=== PATIENT | male | born 1985 | race Hispanic/Latino ===

== ENCOUNTER 2018-03-07 10:16 | Emergency (ER) | payer BC ==
--- NOTE | 2018-03-07 10:18 | EDM.PDOC ---
ED HPI GENERAL MEDICAL PROBLEM - General Chief Complaint: Headache Stated Complaint: HEADACHE Time Seen by Provider: 03/07/18 10:17 Source of Information: Reports: Patient History Limitations: Reports: No Limitations - History of Present Illness INITIAL COMMENTS - FREE TEXT/NARRATIVE: HISTORY AND PHYSICAL: Headache History of present illness: Patient is a 32-year-old male who presents to the emergency room with complaints of left-sided headache. He is concerned that his blood pressure may be causing his symptoms. He states a little over a year ago he had similar problems and had found out he had elevated blood pressure. He had Head CT/MRI and labs, which were normal. He was placed on losartan 50 mg once daily. He had stopped taking this medication as he felt he had improved. He has not taken any antihypertensives in several months. Over the past 3 days he started having left -sided headache and BP of 175/93. His primary care provider in [place] encouraged him to restart his losartan. He states he has been taking a half tab in the morning and a half time in the evening. His headache has not alleviated and is here in the emergency room for evaluation. He denies any fever, chills, chest pain, shortness of breath or cough. Denies any change in vision, dizziness, syncope or near-syncope. He denies any abdominal pain, nausea, vomiting, diarrhea, constipation or dysuria. He has been eating and drinking appropriately. Review of systems: As per history of present illness and below otherwise all systems reviewed and negative. Past medical history: As per history of present illness and as reviewed below otherwise noncontributory. Surgical history: As per history of present illness and as reviewed below otherwise noncontributory. Social history: See social history for further information Family history: As per history of present illness and as reviewed below otherwise noncontributory. Physical exam: General: Well-developed and well-nourished 32-year-old male. Alert and oriented. Nontoxic appearing and in no acute distress. HEENT: Atraumatic, normocephalic, pupils equal and reactive bilaterally, negative for conjunctival pallor or scleral icterus, mucous membranes moist, TMs normal bilaterally, throat clear, neck supple, nontender, trachea midline. No drooling or trismus noted. No meningeal signs. No hot potato voice noted. Lungs: Clear to auscultation, breath sounds equal bilaterally, chest nontender. Heart: S1S2, regular rate and rhythm without overt murmur Abdomen: Soft, nondistended, nontender. Negative for masses or hepatosplenomegaly. Negative for costovertebral tenderness. Pelvis: Stable nontender. Genitourinary: Deferred. Rectal: Deferred. Skin: Intact, warm, dry. No lesions or rashes noted. Extremities: Atraumatic, negative for cords or calf pain. Neurovascular unremarkable. Neuro: Awake, alert, oriented. Cranial nerves II through XII unremarkable. Cerebellum unremarkable. Motor and sensory unremarkable throughout. Exam nonfocal. Notes: We discussed possible diagnostics which she defers at this time. He is agreeable to receiving IV fluids and medication only continue to monitor his blood pressure. Patient is very anxious and describes this headache like a tension headache. I will give him 1 mg of Ativan as he states that the Toradol did not help improve his symptoms. He does have a ride to home. Blood pressure is within normal limits. We'll discharge the patient home as he does feel improved. Encouraged him to take his medication as directed and follow -up with his primary care provider. He voices understanding and is agreeable to plan of care. Denies any further questions or concerns at this time. Diagnostics: Declines Therapeutics: IV fluid, Zofran, Toradol Prescription: None Impression: Headache Medication Non-compliance Plan: 1. Please take your blood pressure medication as directed. 2. Tylenol and/or ibuprofen for pain management. 3. Please follow-up with your primary caregiver in the next 1-2 days. Return to the ED as needed and as discussed. Definitive disposition and diagnosis as appropriate pending reevaluation and review of above. Duration: Day(s): Location: Reports: Head left side of head Pain Score (Numeric/FACES): 5 - Related Data Allergies Allergy/AdvReac Type Severity Reaction Status Date / Time No Known Allergies Allergy Verified 03/07/18 10:21 Home Meds: Home Meds Losartan [Cozaar] 50 mg PO DAILY 03/07/18 [History] ED ROS GENERAL - Review of Systems Review Of Systems: ROS reveals no pertinent complaints other than HPI. - Physical Exam Exam: See Below (See dictation) Course - Vital Signs Last Recorded V/S: Last Vital Signs Temp 98.6 F 03/07/18 10:22 Pulse 91 03/07/18 10:22 Resp 18 03/07/18 10:22 BP 151/72 H 03/07/18 10:22 Pulse Ox 100 03/07/18 10:22 - Orders/Labs/Meds Orders: Active Orders 24 hr Category Date Time Status Sodium Chloride 0.9% [Normal Saline] 1,000 ml Med 03/07/18 10:30 Active IV STAT Medication Orders Sodium Chloride (Normal Saline) 1,000 mls @ 999 mls/hr IV STAT ONE Stop: 03/07/18 11:30 Last Admin: 03/07/18 10:38 Dose: 999 mls/hr Meds: Medications Generic Name Dose Route Start Last Admin Trade Name Freq PRN Reason Stop Dose Admin Sodium Chloride 1,000 mls @ 999 mls/hr 03/07/18 10:30 03/07/18 10:38 Normal Saline IV 03/07/18 11:30 999 mls/hr STAT ONE Administration Discontinued Medications Generic Name Dose Route Start Last Admin Trade Name Freq PRN Reason Stop Dose Admin Ketorolac Tromethamine 30 mg 03/07/18 10:30 03/07/18 10:38 Toradol IVPUSH 03/07/18 10:31 30 mg ONETIME ONE Administration Lorazepam 1 mg 03/07/18 11:13 Ativan IVPUSH 03/07/18 11:14 ONETIME ONE Ondansetron HCl 4 mg 03/07/18 10:30 03/07/18 10:38 Zofran IVPUSH 03/07/18 10:31 4 mg ONETIME ONE Administration Departure - Departure Time of Disposition: 11:20 Disposition: Home, Self-Care 01 Clinical Impression: Noncompliance with medication regimen, History of hypertension Headache Qualifiers: Headache type: tension-type Headache chronicity pattern: acute headache Intractability: not intractable Qualified Code(s): G44.209 - Tension-type headache, unspecified, not intractable - Discharge Information Instructions: Migraine Headache, [id number], Hypertension, [id number] Referrals: PCP,None [Primary Care Provider] - Forms: ED Department Discharge Additional Instructions: The following information is given to patients seen in the emergency department who are being discharged to home. This information is to outline your options for follow-up care. We provide all patients seen in our emergency department with a follow-up referral. The need for follow-up, as well as the timing and circumstances, are variable depending upon the specifics of your emergency department visit. If you don't have a primary care physician on staff, we will provide you with a referral. We always advise you to contact your personal physician following an emergency department visit to inform them of the circumstance of the visit and for follow-up with them and/or the need for any referrals to a consulting specialist. The emergency department will also refer you to a specialist when appropriate. This referral assures that you have the opportunity for follow-up care with a specialist. All of these measure are taken in an effort to provide you with optimal care, which includes your follow-up. Under all circumstances we always encourage you to contact your private physician who remains a resource for coordinating your care. When calling for follow-up care, please make the office aware that this follow-up is from your recent emergency room visit. If for any reason you are refused follow-up, please contact the [facility] Emergency Department at and asked to speak to the emergency department charge nurse. [facility] [address] [place] [address] [place] [address] 1. Please take your blood pressure medication as directed. 2. Tylenol and/or ibuprofen for pain management. 3. Please follow-up with your primary caregiver in the next 1-2 days. Return to the ED as needed and as discussed. - My Orders Last 24 Hours: My Active Orders 03/07/18 10:30 Sodium Chloride 0.9% [Normal Saline] 1,000 ml IV STAT - Assessment/Plan Last 24 Hours: My Active Orders 03/07/18 10:30 Sodium Chloride 0.9% [Normal Saline] 1,000 ml IV STAT
[2018-03-07] MEDS ORDERED: Ondansetron 4 MG/2 ML SDV IVPUSH ONE (10:30)
[2018-03-07] MEDS ORDERED: Ketorolac 30 MG/ML SDV IVPUSH ONE (10:30)
[2018-03-07] MEDS ORDERED: Sodium Chloride 0.9% 1,000 ML IV ONE (10:30)
[2018-03-07] MEDS ORDERED: LORazepam 2 MG/ML SDV IVPUSH ONE (11:13)
== END 2018-03-07 11:50 | disposition home or self-care (01) ==
LOC: MW.ED 10:16
DX: G44.209 Tension-type headache, unspecified, not intractable (principal); Z91.14 Patient's other noncompliance with medication regimen; I10 Essential (primary) hypertension; Z79.899 Other long term (current) drug therapy
CPT/HCPCS: 96361; 96374; 96375; 99284; J1885; J2060; J2405; J7040